=== PATIENT | female | born 2000 | race Two or more races ===

== ENCOUNTER 2022-10-21 19:22 | Emergency (ER) | payer OTHER ==
[~2022-10-21] VITALS: Ht 165.1 cm; Wt 68.0 kg
== END 2022-10-21 23:15 | disposition home or self-care (01) ==
LOC: ER 19:22
DX: O23.41 Unspecified infection of urinary tract in pregnancy, first trimester (principal); N39.0 Urinary tract infection, site not specified; Z3A.01 Less than 8 weeks gestation of pregnancy; Z88.8 Allergy status to other drugs, medicaments and biological substances; Z91.040 Latex allergy status